=== PATIENT | male | born 1990 | race Caucasian/White ===

== ENCOUNTER 2019-04-27 18:41 | Emergency (ER) | payer OTHER ==
[~2019-04-27] VITALS: Ht 177.8 cm; Wt 73.1 kg
[2019-04-27 19:15] VITALS: Ht 177.8 cm; Wt 73.1 kg
[2019-04-27 21:16] LABS: UA SPECIFIC GRAVITY 1.025 (1.005-1.035); microscopic required? YES; urine erythrocyte NEGATIVE (NEGATIVE)
[2019-04-27 22:23] VITALS: BP 105/70
== END 2019-04-27 22:23 | disposition home or self-care (01) ==
LOC: ED 18:41
PROVIDERS: Specialist
DX: S39.012A Strain of muscle, fascia and tendon of lower back, initial encounter (principal); K59.00 Constipation, unspecified; X58.XXXA Exposure to other specified factors, initial encounter; Y93.89 Activity, other specified; Y92.89 Other specified places as the place of occurrence of the external cause; Y99.8 Other external cause status